=== PATIENT | female | born 1985 | race Caucasian/White ===

== ENCOUNTER 2025-06-07 17:55 | Observation (INO) | payer BC, SELFPAY ==
[2025-06-07 14:56] VITALS: BMI 32.9
[2025-06-07 14:58] VITALS: BP 132/89
--- NOTE | 2025-06-07 15:33 | ED.GENMED ---
History of Present Illness
<Omar Price MD, Resident - Last Filed: 06/07/25 17:28>
General
Chief Complaint: Abdominal Symptoms
Source: patient
Exam Limitations: none
Time Seen by Provider: 06/07/25 15:28
History of Present Illness
History of Present Illness:
This is a 39-year-old female with no known medical conditions currently not on any medication presenting in the emergency department with complaints of persistent nausea and vomiting that started around 9 in the morning today. She is she reports
that she returned from [place] after staying for 4 nights in [facility]. She denies any GI symptoms during her stay in [place] however she experienced frequent urination that started on Monday while she was in [place] and apparently her symptoms were
resolving on its own however she decided to take feoa-bkt-[id number] medications for UTI last night when she returned home. She reports that the medication was and it was just cranberry pills so she decided to use it. When she woke up today
she developed nausea and vomiting she took 1 tablet of Zofran 4 mg which was also and did not provide any benefit. Reports that she could not eat anything today because of nausea and vomiting. She did not notice any blood in the vomit and
its mostly greenish in color.
She also reports that she uses ' pot' every day and had some last night as well. She denies any fevers or chills, chest pain, trouble breathing, headache, constipation, diarrhea, any urinary symptoms at this time.
Denies any recent sick contacts.
Past History
<Omar Price MD, Resident - Last Filed: 06/07/25 17:28>
Past History
ED Past Medical History: None
ED Past Surgical History: None
Patient has exhibited threatening behavior?: No
Social History
Tobacco: Smoker (1 to 2 cigarette/day)
Alcohol: Occasional
Drug: Marijuana
Personal: Single
Living: alone
Family History
Family History: Other (Noncontributory)
Review of Systems
<Omar Price MD, Resident - Last Filed: 06/07/25 17:28>
Review of Systems
Allergies reviewed?: Yes
Constitutional: Denies fever or chills
EENT: Denies sore throat
Respiratory: Denies cough
Cardiac: Denies chest pain
ABD/GI: Reports nausea and vomiting; Denies abdominal pain, diarrhea or constipated
: Denies dysuria, frequency, flank pain or incontinence
Musculoskeletal: Denies joint pain
Neurological: Denies dizzy
Hematologic/Lymphatic: Denies bleeding
Phy Exam
<Omar Price MD, Resident - Last Filed: 06/07/25 17:28>
General Physical Exam
General Presentation: mild distress
General age: appears stated age
General Skin: warm
General Habitus: obese
General Mental: alert
General Hydration: dry mucous membranes
Cardiovascular Exam
Cardiovascular Exam: regular rate/rhythm and no murmur
Pulmonary Exam
Pulmonary Exam: lungs clear, no respiratory distress and no cough
Gastrointestinal Exam
Gastrointestinal Exam: normal bowel sounds, non tender, soft and non distended
Neurological Exam
Neurological Exam: alert and oriented x3
Course
<Omar Price MD, Resident - Last Filed: 06/07/25 17:28>
Orders/Labs/Results
Orders:
Orders
06/07/25 15:38
Complete Blood Count/With Diff Urgent
Comprehensive Metabolic Panel Urgent
HCG, Serum Qualitative Screen Urgent
Comment: ADD ON
Lipase Urgent
Comment: ADD ON
06/07/25 15:42
0.9% Sodium Chloride 1000 ml [Nss] 1,000 ml IV BOLUS
Ondansetron Injectable [Zofran] 4 mg IV NOW STA
Pantoprazole [Protonix IV] 40 mg IV NOW STA
06/07/25 15:45
Add On- LAB Urgent
Tests Added?: Lipase
06/07/25 16:04
Add On- LAB Urgent
Tests Added?: hcg qual
06/07/25 16:27
droPERidol [Inapsine] 1.25 mg IV NOW STA
06/07/25 16:32
US Abdomen Complete/Upper Urgent
Comment:
Reason For Exam: Abdominal discomfort and intractable vomiting
06/07/25 16:45
0.45% Sodium Chloride 1000 ml [0.45%NaCl] 1,000 ml Sodium Bicarbonate 75 meq IV 100 mls/hr
06/07/25 16:46
ECG [Electrocardiogram (*1)] Urgent
Reason for Study: QTc Monitoring
06/07/25 16:47
Urinalysis Reflex To Culture Urgent
Date Specimen was Collected: 06/07/25
Time Specimen was Collected: 16:44
Urine Microscopic Reflex Cult Urgent
Urine Culture Urgent
EMMA Source: U
Specimen Description:
Date Specimen was Collected: 06/07/25
Time Specimen was Collected: 16:44
06/07/25 16:55
Lactate Level [Lactic Acid] Urgent
06/07/25 16:57
Admit/Transfer Patient As Directed
Co-Sign Provider:
Level of Care: Observation services
Assign to:: Medical/Surgical
Physician / Group: Shauna
Diagnosis: Hyperemesis
PRN Pain Medication Management As Directed
May give lesser potent ordered pain med per pt: Yes
preference::
Protocol:: Medication orders for pain may be administered in a
manner that supports deferring to patient preference
when the pt is:
- Requesting an ordered lesser potent pain medication.
Least to most potent pain medications are defined
as: acetaminophen < NSAID < tramadol < opioids
(morphine, oxycodone, hydromorphone).
- Requesting a lesser dose of the same medication IF
ORDERED.
- Requesting a less intrusive route of administration
if both routes are prescribed by the provider (PO <
IV).
06/07/25 16:58
Code Status As Directed
Resuscitation Status: Full Code
06/07/25 17:02
Sodium Bicarbonate 50 meq IV NOW STA
06/07/25 18:00
Lactated Ringers [Lr] 1,000 ml IV 125 mls/hr
Abnormal Lab Results
06/07/25 06/07/25
15:38 16:47
Absolute Neuts (auto) 7.4 H 10^3/uL
(1.4-6.5)
Absolute Monos (auto) 0.8 H 10^3/uL
(0.1-0.6)
Lymphocytes % 19.1 L %
(20.5-51.1)
Carbon Dioxide 11 L* mmol/L
(22-30)
Glucose 181 H mg/dl
(70-99)
Total Bilirubin 1.5 H mg/dl
(0.2-1.3)
AST 45 H U/L
(14-36)
ALT 45 H U/L
(0-35)
Total Protein 8.5 H g/dl
(6.3-8.2)
Albumin 5.4 H g/dl
(3.5-5.0)
Urine Ketones 3+ A
(Negative)
Ur Occult Blood Reflex 1+ A
(Negative)
Urine Nitrite (Reflex) Positive A
(Negative)
Urine Bilirubin 3+ A
(Negative)
Urine Urobilinogen 3+ A
(Neg - 1+)
Urine Bacteria (Reflex) Moderate A
(Negative)
Urine Albumin (Reflex) 3+ A
(Neg - Trace)
06/07/25 15:38
06/07/25 15:38
Vital Signs
Initial and Last Documented VS:
Initial Vital Signs
Temp Pulse Resp BP Pulse Ox
98.2 F 89 16 132/89 99
06/07/25 14:58 06/07/25 14:58 06/07/25 14:58 06/07/25 14:58 06/07/25 14:58
Last Documented Vital Signs
Temp Pulse Resp BP Pulse Ox
98.2 F 73 22 138/85 100
06/07/25 16:00 06/07/25 16:00 06/07/25 16:00 06/07/25 16:00 06/07/25 16:00
<Maria G Easton MD - Last Filed: 06/07/25 16:49>
Orders/Labs/Results
Orders:
Orders
06/07/25 15:38
Complete Blood Count/With Diff Urgent
Comprehensive Metabolic Panel Urgent
HCG, Serum Qualitative Screen Urgent
Comment: ADD ON
Lipase Urgent
Comment: ADD ON
06/07/25 15:42
0.9% Sodium Chloride 1000 ml [Nss] 1,000 ml IV BOLUS
Ondansetron Injectable [Zofran] 4 mg IV NOW STA
Pantoprazole [Protonix IV] 40 mg IV NOW STA
06/07/25 15:45
Add On- LAB Urgent
Tests Added?: Lipase
06/07/25 16:04
Add On- LAB Urgent
Tests Added?: hcg qual
06/07/25 16:27
droPERidol [Inapsine] 1.25 mg IV NOW STA
06/07/25 16:32
US Abdomen Complete/Upper Urgent
Comment:
Reason For Exam: Abdominal discomfort and intractable vomiting
06/07/25 16:45
0.45% Sodium Chloride 1000 ml [0.45%NaCl] 1,000 ml Sodium Bicarbonate 75 meq IV 100 mls/hr
06/07/25 16:46
ECG [Electrocardiogram (*1)] Urgent
Reason for Study: QTc Monitoring
06/07/25 16:47
Urinalysis Reflex To Culture Urgent
Date Specimen was Collected: 06/07/25
Time Specimen was Collected: 16:44
Urine Microscopic Reflex Cult Urgent
Urine Culture Urgent
EMMA Source: U
Specimen Description:
Date Specimen was Collected: 06/07/25
Time Specimen was Collected: 16:44
06/07/25 16:55
Lactate Level [Lactic Acid] Urgent
06/07/25 16:57
Admit/Transfer Patient As Directed
Co-Sign Provider:
Level of Care: Observation services
Assign to:: Medical/Surgical
Physician / Group: Shauna
Diagnosis: Hyperemesis
PRN Pain Medication Management As Directed
May give lesser potent ordered pain med per pt: Yes
preference::
Protocol:: Medication orders for pain may be administered in a
manner that supports deferring to patient preference
when the pt is:
- Requesting an ordered lesser potent pain medication.
Least to most potent pain medications are defined
as: acetaminophen < NSAID < tramadol < opioids
(morphine, oxycodone, hydromorphone).
- Requesting a lesser dose of the same medication IF
ORDERED.
- Requesting a less intrusive route of administration
if both routes are prescribed by the provider (PO <
IV).
06/07/25 16:58
Code Status As Directed
Resuscitation Status: Full Code
06/07/25 17:02
Sodium Bicarbonate 50 meq IV NOW STA
06/07/25 18:00
Lactated Ringers [Lr] 1,000 ml IV 125 mls/hr
Abnormal Lab Results
06/07/25 06/07/25
15:38 16:47
Absolute Neuts (auto) 7.4 H 10^3/uL
(1.4-6.5)
Absolute Monos (auto) 0.8 H 10^3/uL
(0.1-0.6)
Lymphocytes % 19.1 L %
(20.5-51.1)
Carbon Dioxide 11 L* mmol/L
(22-30)
Glucose 181 H mg/dl
(70-99)
Total Bilirubin 1.5 H mg/dl
(0.2-1.3)
AST 45 H U/L
(14-36)
ALT 45 H U/L
(0-35)
Total Protein 8.5 H g/dl
(6.3-8.2)
Albumin 5.4 H g/dl
(3.5-5.0)
Urine Ketones 3+ A
(Negative)
Ur Occult Blood Reflex 1+ A
(Negative)
Urine Nitrite (Reflex) Positive A
(Negative)
Urine Bilirubin 3+ A
(Negative)
Urine Urobilinogen 3+ A
(Neg - 1+)
Urine Bacteria (Reflex) Moderate A
(Negative)
Urine Albumin (Reflex) 3+ A
(Neg - Trace)
06/07/25 15:38
06/07/25 15:38
Vital Signs
Initial and Last Documented VS:
Initial Vital Signs
Temp Pulse Resp BP Pulse Ox
98.2 F 89 16 132/89 99
06/07/25 14:58 06/07/25 14:58 06/07/25 14:58 06/07/25 14:58 06/07/25 14:58
Last Documented Vital Signs
Temp Pulse Resp BP Pulse Ox
98.2 F 73 22 138/85 100
06/07/25 16:00 06/07/25 16:00 06/07/25 16:00 06/07/25 16:00 06/07/25 16:00
<Omar Price MD, Resident - Last Filed: 06/07/25 17:28>
MDM/Problems Addressed
Differential Diagnosis Includes:
Intractable vomiting vs reaction to medication vs viral gastroenteritis vs cannabis hyperemesis syndrome vs less likely pancreatitis
MDM/Problems Addressed:
Check CBC, CMP, urine, lipase
IV Zofran 4 mg
IV normal saline 1 L
IV Protonix 40 mg 1 dose
update: 4:30
Patient continues to experience nausea
Will get 1 dose of IV droperidol
CBC with normal white count and hemoglobin.
CMP with bicarb of 11 and mild elevation of LFTs. Will get ultrasound abdominal.
Will admit the patient; patient aware.
EKG with prolonged Qtc(506); will avoid additional zofran
<Omar Price MD, Resident - Last Filed: 06/07/25 17:28>
*Pulse Oximetry
SaO2: 99
Oxygen Mode of Delivery: Room air
Patient hypoxic: no
*Critical Care Note
Total Time (30-74mins, 75-104mins- exclusive of procedures): Not Applicable
ED Attending Note
<Omar Price MD, Resident - Last Filed: 06/07/25 17:28>
-
Portions of this chart may have been created with voice recognition software.� Occasional wrong word or��sound alike� substitutions may have occurred due to the inherent limitations of voice recognition software.
<Maria G Easton MD - Last Filed: 06/07/25 16:49>
ED Attending Note
Patient seen and examined by attending physician: Yes
I performed a history and physical exam of patient and discussed management with resident, I reviewed resident's note and agree with documented findings and plan of care.: Yes
ED Attending Note:
39-year-old female with recent trip to [place] reports repeated episodes of vomiting without associated diarrhea since this morning. She does have epigastric burning discomfort as well. She denies fever, chills, coffee-ground emesis, bleeding,
chest pain, shortness of breath. She did note urinary frequency and took uexs-bdh-phkaczb medications with the suspicion that she had a UTI although that has resolved. Patient does admit to using marijuana regularly for anxiety. On exam, mucous
membranes dry, abdomen soft and nontender. Labs noted, bicarb 11. CHS a consideration as part of the differential and this was discussed with patient and recommend abstinence of THC, will add bicarb to fluids, admission, continued workup including
ultrasound.
Discharge Plan
Departure
Patient Disposition: Admit
Date of Disposition: 06/07/25
Time of Disposition: 16:39
Presentation/result/management discussed w/ accepting MD/DO: Hospitalist
Discharge Problem:
Intractable nausea and vomiting
Prescriptions:
No Action
Medical Marijuana
1 dose inhalation HS
Referrals:
NONE,* [Family Provider, Internal Medicine]
Interventions
Interventions:
*Risk Screen - Suicide Last Done: 06/07/25 14:58
*General Assessment Last Done: 06/07/25 15:34
*Neglect/Abuse Screening Last Done: 06/07/25 14:58
*ED- Fall Risk Assessment Last Done: 06/07/25 15:34
*ED COVID-19 Vaccine History Last Done: 06/07/25 15:34
UA-Oydryb-Earyvtvgwt Assessment Last Done: 06/07/25 15:34
Discharge Date and Time
Print Language: SINHALA
[2025-06-07 15:45] LABS: Hematocrit 43.7 % (37.0-47.0); Hemoglobin 15.6 g/dL (12.0-16.0); Mean Corp Hgb Conc. 35.7 g/dL (33.0-37.0); Mean Corpuscular Volume 82.5 fL (81.0-99.0); Nucleated Red Blood Cells % 0 %; Platelet Count 360 10^3/uL (130-400); Red Cell Dist. Width 11.9 % (11.5-14.5)
[2025-06-07] MEDS: NSS 1000 IV (15:51)
[2025-06-07] MEDS: ZOFRAN 4 MG IV (15:51)
[2025-06-07] MEDS: PROTONIX IV 40 MG IV (15:51)
[2025-06-07 16:00] VITALS: BP 138/85
[2025-06-07 16:16] LABS: ALT (SGPT) 45 U/L (0-35); AST (SGOT) 45 U/L (14-36); Albumin 5.4 g/dl (3.5-5.0); Alkaline Phosphatase 93 U/L (38-126); Blood Urea Nitrogen 17 mg/dl (7-17); Calcium 10.0 mg/dl (8.4-10.2); Carbon Dioxide 11 mmol/L (22-30); Chloride 107 mmol/L (98-107); Estimated Creatinine Clearance > 125 ml/min; Glucose 181 mg/dl (70-99); Potassium 4.0 mmol/L (3.5-5.1); Sodium 139 mmol/L (135-145); Total Protein 8.5 g/dl (6.3-8.2); eGFR > 60.00
[2025-06-07] MEDS: INAPSINE 1.25 MG IV (16:38)
[2025-06-07 16:40] LABS: Lipase 61 U/L (23-300)
[2025-06-07 16:45] LABS: HCG, Serum Qualitative Screen Negative
[2025-06-07 16:54] LABS: Urine Character Clear (Clear)
--- NOTE | 2025-06-07 16:57 | HPS.HSE ---
Addendum entered and electronically signed by Etelvina Flores PA-C 06/07/25 19:28:
ECG Revealed Prolonged QT greater than 500ms
-Stop Zofran and transition to Tigan for Nausea
-Recheck ECG in AM
Original Note:
Family Physician
-
Family Physician: * NONE
Chief Complaint
-
Vomiting
History of Present Illness
Patient is a 39 y/o female without significant past medical history who presents with intractable vomiting. Patient reports she recently return from a trip to [facility]. While she was in [place] she did developed some urinary frequency which
resolved. This morning she awoke with intractable nausea and vomiting. She took some leftover Zofran which did not relieve her symptoms. She reports epigastric abdominal discomfort. She denies hematemesis. She denies fevers, but is now
complaining of chills. She is complaining about feeling anxious and is notes to be very restless. She states she uses medical marijuana nightly after work as she has very stressful job.
Medical History
Past Medical History
Past Medical History: Reports None
Past Surgical History: Reports None
Social History
Tobacco: Smoker (Patient smokes one cigarette per day)
Family History
Family History: Not pertinent
Allergies / Home Medications
Allergies reflects when Allergies were last updated in [facility].
Home Medications with original date entered in [facility]
Allergy/Medication List:
Allergies
Allergy/AdvReac Type Severity Reaction Status Date / Time
Penicillins Allergy Hives Verified 06/07/25 15:51
Home Medications
Medical Marijuana 1 dose inhalation HS 06/07/25
Review of Systems
-
A 12 point ROS was completed and negative except as noted: Yes
Constitutional: Denies Fever
Respiratory: Denies Cough or Trouble Breathing
Cardiac: Denies Chest Pain or Palpitations
Abdomen/GI: Reports See HPI
Physical Exam
Vital Signs
Vital Signs
Temp Pulse Resp BP Pulse Ox
98.2 F 73 22 138/85 100
06/07/25 16:00 06/07/25 16:00 06/07/25 16:00 06/07/25 16:00 06/07/25 16:00
Physical Exam
General: Well Developed, Well Nourished and Conversant
HEENT: Anicteric and Atraumatic
Respiratory: Clear and Non Labored Respirations
Cardiac: S1/S2 and Regular Rhythm
GI: Soft and Non Tender
Rectal: Deferred by Provider
Musculoskeletal: No Clubbing, No Cyanosis and No Edema
Skin: Warm and Dry
Neuro: Awake, Alert, Oriented and Nonfocal/grossly intact
Psych: Calm
Laboratory Results
-
06/07/25 15:38
06/07/25 15:38
Laboratory Results
Total Bilirubin 1.5 mg/dl (0.2-1.3) H 06/07/25 15:38
AST 45 U/L (14-36) H 06/07/25 15:38
ALT 45 U/L (0-35) H 06/07/25 15:38
Alkaline Phosphatase 93 U/L (38-126) 06/07/25 15:38
Lipase 61 U/L (23-300) 06/07/25 15:38
Data Reviewed
-
Lab Data: Labs Reviewed by me
Impression/Plan
-
Intractable Vomiting, suspect cannabis hyperemesis syndrome
-Continue NPO with sips/chips
-Continue IVFS
-Continue Zofran for nausea - Check ECG to monitor QTc
-Await Abd US
Anion-Gap Metabolic Acidosis, suspect related to volume depletion
-Check lactic acid
-Give amp sodium bicarbonate now
-Continue IVFs
Hyperglycemia
-Check HgbA1c
DVT proph: Lovenox
Code Status: Full Code
[2025-06-07] MEDS: LR 1000 IV (17:11)
[2025-06-07] MEDS: SODIUM BICARBONATE 50 MEQ IV (17:11)
--- NOTE | 2025-06-07 17:20 | CM ---
CM reviewed chart and met with pt bedside in ED. Pt was nauseous and sleepy, did not answer many questions.
Lives alone. Independent at baseline. No DME.
No hx VN/SNF
PCP: Roly Mata, not able to give specific doctors name
Pharmacy: [facility]
Anticipate discharge home, no needs. CM will continue to follow.
[2025-06-07 17:23] LABS: Urine Red Blood Cell 0-2 /HPF (0-2)
--- NOTE | 2025-06-07 18:15 | W.PN.UPDATE ---
Update Note
Progress Note Update
This is an addendum to H&P written by Etelvina Hui on 06/07/2025. �Patient seen and examined independently with PA.
39-year-old female without medical history apart from prior UTIs presenting for persistent nausea vomiting since this morning today. �She recently returned from [place]. �Also with frequent urination. �Uses marijuana daily.
Vital signs normal. �Labs unremarkable apart from bicarb of 11, mild transaminitis, blood sugar 181.
Patient with persistent vomiting likely secondary to marijuana, possible gastroenteritis after recent travel to [place]. �Also with anion gap metabolic acidosis likely from hypovolemia.
Conservative care with IV fluids with LR, bicarb push, droperidol given, Zofran, NPO, recommend marijuana cessation. �Check lactate. �Urinalysis pending.
[2025-06-07 18:30] VITALS: BP 142/86
[2025-06-07 18:36] VITALS: BMI 32.9
[2025-06-07] MEDS: LOVENOX 40 MG SC (18:42)
[2025-06-07] MEDS: TIGAN 200 MG IM (18:45)
--- NOTE | 2025-06-07 18:45 | PTCARENOTE ---
Pt. arrived from ED via stretcher, ambulated to bed independently. Pt. with c/o nausea, PRN Tigan given as ordered. Pt. resting in bed with mom at bedside, call salgado within reach.
[2025-06-07] MEDS: MELATONIN 5 MG PO (20:08)
[2025-06-07 23:10] VITALS: BP 138/85
[2025-06-08] MEDS: TIGAN 200 MG IM ×2 (00:48→07:25)
[2025-06-08] MEDS: LR 1000 IV ×2 (02:11→11:18)
[2025-06-08 07:13] LABS: Hematocrit 38.4 % (37.0-47.0); Hemoglobin 13.7 g/dL (12.0-16.0); Mean Corp Hgb Conc. 35.7 g/dL (33.0-37.0); Mean Corpuscular Volume 83.1 fL (81.0-99.0); Platelet Count 330 10^3/uL (130-400); Red Cell Dist. Width 11.8 % (11.5-14.5)
[2025-06-08] MEDS: NSS (PRESERVATIVE FREE) 10 ML IV (07:26)
[2025-06-08] MEDS: PROTONIX IV 40 MG IV (07:26)
[2025-06-08 07:30] VITALS: BP 127/84
[2025-06-08 07:53] LABS: ALT (SGPT) 36 U/L (0-35); AST (SGOT) 27 U/L (14-36); Albumin 4.7 g/dl (3.5-5.0); Alkaline Phosphatase 67 U/L (38-126); Blood Urea Nitrogen 11 mg/dl (7-17); Calcium 8.9 mg/dl (8.4-10.2); Carbon Dioxide 16 mmol/L (22-30); Chloride 107 mmol/L (98-107); Estimated Creatinine Clearance > 125 ml/min; Glucose 149 mg/dl (70-99); Magnesium 1.8 mg/dl (1.6-2.3); Potassium 3.1 mmol/L (3.5-5.1); Sodium 137 mmol/L (135-145); Total Protein 7.4 g/dl (6.3-8.2); eGFR > 60.00
[2025-06-08] MEDS: KCL 40 MEQ PO (08:53)
[2025-06-08 11:00] LABS: Glycohemoglobin (HgbA1c) 5.7 % (4.0-5.6)
--- NOTE | 2025-06-08 11:13 | W.PN.UPDATE ---
Update Note
Progress Note Update
Patient is declining ultrasound as she is not sure if it is going to be covered. She spoke to her PCP and she is planning to see her tomorrow to get ultrasound and further workup through her. The reasoning behind the ultrasound order was explained
to the patient and understand that ultrasound was to look for any gallbladder pathology and this will be missed if ultrasound was not done. Patient states that she feels 100% better with no pain or nausea.
[2025-06-08] MEDS: MAGNESIUM OXIDE 500 MG PO (11:18)
[2025-06-08 14:15] LABS: Blood Urea Nitrogen 10 mg/dl (7-17); Calcium 9.3 mg/dl (8.4-10.2); Carbon Dioxide 19 mmol/L (22-30); Chloride 110 mmol/L (98-107); Estimated Creatinine Clearance > 125 ml/min; Glucose 134 mg/dl (70-99); Potassium 3.5 mmol/L (3.5-5.1); Sodium 139 mmol/L (135-145); eGFR > 60.00
--- NOTE | 2025-06-08 15:00 | W.PN.HOSP.TC ---
Today's Communication/Plan
-
Labs improved
Check a trop
Assessment / Plan
Assessment / Plan
39-year-old female went to [place] and came back and started getting sick on the plane. She had abdominal discomfort as well as persistent vomiting. No diarrhea. No fever. She also has medical marijuana which she smokes. Patient states that she
feels better after she takes hot shower and no nausea now.
CVS: S1-S2 normal
Chest: CTA B/L
Abdomen: Soft, NT / Bowel sounds present
Extremities: No edema,
#Intractable Vomiting, suspect cannabis hyperemesis syndrome
Advance diet to LRD
Stop IVF
Pt did not want to get USS.
Aware the need and downside of not getting.
# Hypokalemia - Replaced
# Prolonged QTC
Better after K corrected.
EKG noted T changes?
Check Trop
# AG Met acidosis- Resolving.
# Obesity per BMI
# DVT prophylaxis- Lovenox
# Full CODE
Anticipated Discharge: Within 24 hours
Subjective/Interval History
-
Date of Service: June 08, 2025
Objective Data
-
Labs:
Laboratory Results
06/08/25 06/08/25
06:27 13:41
WBC 12.5 H
Hgb 13.7
Hct 38.4
Plt Count 330
Sodium 137 139
Potassium 3.1 L 3.5
Chloride 107 110 H
Carbon Dioxide 16 L 19 L
BUN 11 10
Creatinine 0.5 L 0.5 L
Glucose 149 H 134 H
Calcium 8.9 9.3
Total Bilirubin 1.0
AST 27
ALT 36 H
Alkaline Phosphatase 67
Vital Signs:
Vital Signs
Temp Pulse Resp BP Pulse Ox
98.7 F 70 20 127/84 100
06/08/25 07:30 06/08/25 07:30 06/08/25 07:30 06/08/25 07:30 06/08/25 07:30
[2025-06-08 15:17] VITALS: BP 128/78
[2025-06-08] MEDS: KCL 20 MEQ PO (15:30)
[2025-06-08 16:23] LABS: Troponin I < 0.012 ng/ml
--- NOTE | 2025-06-08 16:33 | W.PN.UPDATE ---
Addendum entered and electronically signed by Stan Hawkins MD 06/08/25 17:00:
Dictation- [id number]
Original Note:
Update Note
Progress Note Update
Troponin noted.
EKG noted QTc is better
Patient has no chest pain or any other symptoms. Discussed about getting an echo here tomorrow she absolutely does not want to stay another night and wants to be discharged and she also is concerned about chest pain done here in the hospital would
not be covered. She wants to get the echo as well as ultrasound through her PCP. Reasoning behind about tests were discussed and explained to the patient.
Patient does not have any urinary symptoms. She has a history of kidney stones from the past. Urine cultures are pending however with no symptoms of a UTI will not start her on any antibiotics. Per discussion with the patient her PCP will have
access to her labs.
Discussed about having a low residue diet and make sure that she tolerates that before we place a discharge
Labs including bicarb are better
--- NOTE | 2025-06-08 17:32 | W.DS.TRANS ---
DC Summary - Dynamometer Repairer
-
Discharge Instructions:
Discharge Diagnosis/Procedures Intractable vomiting likely cannabis hyperemesis
syndrome
Hypokalemia ( Low potassium)
Prolonged QTc
Metabolic acidosis
Diet Low Residue
Activity As tolerated
Driving Restrictions As prior to admission
Others Tests Ultrasound of the liver as outpatient
Echocardiogram as outpatient
If you develop any urinary symptoms, fever or
abdominal pain follow-up with your PCP to
evaluate urine analysis further or to prescribe
antibiotics
Instructions:
Stand-Alone Forms:
Changes to Home Medications: No
Discharge Medications:
Home Medication Changes
Pending Results: Yes (urine culture)
--- NOTE | 2025-06-08 17:39 | W.DS.TRANS ---
DC Summary - Risk Management Analyst
-
Discharge Instructions:
Discharge Diagnosis/Procedures Intractable vomiting likely cannabis hyperemesis
syndrome
Hypokalemia ( Low potassium)
Prolonged QTc
Metabolic acidosis
Diet Low Residue
Activity As tolerated
Driving Restrictions As prior to admission
Others Tests Ultrasound of the liver as outpatient
Echocardiogram as outpatient
If you develop any urinary symptoms, fever or
abdominal pain follow-up with your PCP to
evaluate urine analysis further or to prescribe
antibiotics
Instructions:
Stand-Alone Forms:
Changes to Home Medications: Yes
Discharge Medications:
DC Medications w/original date entered in [employer]
trimethobenzamide 300 mg capsule 300 mg PO Q8H PRN nausea and vomiting #15 caps 06/08/25
Home Medication Changes
tigan new
Pending Results: Yes (urine cx)
[2025-06-08] MEDS: LOVENOX SC (17:43)
== END 2025-06-08 17:54 | disposition home or self-care (01) ==
LOC: 4 EAST ACU 17:55
PROVIDERS: Physician Assistant Medical; ADMITTING PHYSICIAN Hospitalist; ATTENDING PHYSICIAN Hospitalist; EMERGENCY PHYSICIAN Emergency Medicine
DX: R11.2 Nausea with vomiting, unspecified (principal); F12.90 Cannabis use, unspecified, uncomplicated; E87.20 Acidosis, unspecified; R73.9 Hyperglycemia, unspecified; E87.6 Hypokalemia; E66.9 Obesity, unspecified; Z68.32 Body mass index [BMI] 32.0-32.9, adult; F17.210 Nicotine dependence, cigarettes, uncomplicated; F41.9 Anxiety disorder, unspecified; Z79.899 Other long term (current) drug therapy
CPT/HCPCS: 80048; 80053; 81003; 81015; 83036; 83605; 83690; 83735; 84484; 84703; 85025; 85027; 87086; 93005; 96361; 96374; 96375; 99284; G0378; J1790; J7030

== ENCOUNTER 2025-06-09 18:03 | Observation (INO) | payer BC, SELFPAY ==
[2025-06-09 11:07] VITALS: BP 132/86
--- NOTE | 2025-06-09 12:53 | ED.GENMED ---
History of Present Illness
General
Chief Complaint: Abdominal Symptoms
Source: patient
Exam Limitations: none
Time Seen by Provider: 06/09/25 12:31
Nursing documentation reviewed up to this point in time: agreed with
History of Present Illness
History of Present Illness:
Patient is a 39-year-old female who presents to the emergency department with intractable nausea/vomiting. Patient recently discharged from hospital yesterday after 1 night stay for similar symptoms. Symptoms were suspected to be secondary to
cannabis hyperemesis syndrome. Patient states shortly after leaving the hospital she became nauseous and has had intractable vomiting/dry heaving since last night.
She denies any fever, chills, abdominal pain. No chest pain or shortness of breath. No diarrhea or urinary symptoms.
Patient was discharged with prescription for Tigan which was sent to the pharmacy. Unfortunately, pharmacy was out of stock and she was unable to belt picker medication. Patient was found to have a prolonged QTc during her hospitalization.
Patient was planning to have an abdominal ultrasound performed through her primary care provider later this week.
Patient does report almost daily marijuana use. Symptoms initially began 3 days ago after returning home from a trip to [place].
Past History
Past History
ED Past Medical History: None
ED Past Surgical History: None
Patient has exhibited threatening behavior?: No
Social History
Tobacco: Smoker (1 to 2 cigarette/day)
Alcohol: Occasional
Drug: Marijuana
Personal: Single
Living: alone
Family History
Family History: Other (Noncontributory)
Review of Systems
Review of Systems
Allergies reviewed?: Yes
All Other Systems: ROS reviewed and negative except as documented in HPI and ROS
Phy Exam
Physical Exam
Physical Exam:
Vitals: Patient's vital signs are stable. Afebrile
General: Patient is actively retching on examination.
Skin: Warm and dry, no rashes or lesions
Head: Normocephalic, atraumatic
Eyes: Sclera nonicteric. EOMs intact. No nystagmus.
Throat: Dry mucous membranes. Protecting airway
Neck: Normal ROM, no cervical spine tenderness, no meningismus
Cardiac: Regular rate and rhythm, no murmurs.
Pulm: Normal respiratory effort, no wheezes, rales, rhonchi heard on exam
Abdomen: Abdomen soft and nontender. Negative Benitez sign
Extremities: No evidence of cyanosis or edema
Neuro: AAOx3. Grossly intact.
Psychiatric: Normal affect.
Course
Orders/Labs/Results
Orders:
Orders
06/09/25 13:13
0.9% Sodium Chloride 1000 ml [Nss] 1,000 ml IV BOLUS
Pantoprazole [Protonix IV] 40 mg IV NOW STA
Trimethobenzamide [Tigan] 200 mg IM NOW STA
US Abdomen Complete/Upper Urgent
Comment:
Reason For Exam: Intractable nausea/vomiting
06/09/25 13:14
Electrocardiogram (*1) Urgent
Reason for Study: QTc Monitoring
EKG- Treatment ONCE
06/09/25 13:33
Basic Metabolic Panel Urgent
Complete Blood Count/With Diff Urgent
Lipase Urgent
06/09/25 Dinner
NPO
Allow oral meds: Yes
Allow clear liquids: Sips of Clears
NPO with Ice Chips: Yes
06/09/25 16:00
Capsaicin [Zostrix-Hp 0.075% Cream] See Dose Instructions TOPICAL QID
06/09/25 17:15
Dextrose 5%/Water 1000 ml [D5w] 1,000 ml Sodium Bicarbonate 150 meq IV 80 mls/hr
06/09/25 17:36
Admit/Transfer Patient As Directed
Co-Sign Provider:
Level of Care: Observation services
Assign to:: Telemetry
Physician / Group: Hospitalist
Diagnosis: Intractable vomiting
Reason for Telemetry: Other
Other Reason for Telemetry: QT
Date to Stop Telemetry: 06/11/25
Time to Stop Telemetry: 11:00
PRN Pain Medication Management As Directed
May give lesser potent ordered pain med per pt: Yes
preference::
Protocol:: Medication orders for pain may be administered in a
manner that supports deferring to patient preference
when the pt is:
- Requesting an ordered lesser potent pain medication.
Least to most potent pain medications are defined
as: acetaminophen < NSAID < tramadol < opioids
(morphine, oxycodone, hydromorphone).
- Requesting a lesser dose of the same medication IF
ORDERED.
- Requesting a less intrusive route of administration
if both routes are prescribed by the provider (PO <
IV).
06/09/25 17:37
Code Status As Directed
Resuscitation Status: Full Code
06/09/25 18:00
Capsaicin [Zostrix-Hp 0.075% Cream] See Dose Instructions TOPICAL QID
06/09/25 20:37
Bisacodyl [Dulcolax] 10 mg RECTAL [id number] PRN
Docusate W/Senna [Senokot-S] 1 tablet PO BIDPRN PRN
Enoxaparin Sodium [Lovenox] 40 mg SC QPM
Polyethylene Glycol Powder [Miralax] 17 grams PO DAILYPRN PRN
Trimethobenzamide [Tigan] 200 mg IM Q6HPRN PRN
06/09/25 20:37
Activity As Directed
Activity Level: As Tolerated
Vital Signs As Directed
Frequency: Per unit guidelines
DX Deep Vein Thrombosis Video Routine
06/10/25 06:00
Basic Metabolic Panel IN AM
Complete Blood Count/No Diff IN AM
Magnesium IN AM
06/10/25 08:00
Pantoprazole [Protonix] 40 mg PO DAILY
06/11/25 11:00
DC Protocol for Telemetry ONCE
Abnormal Lab Results
06/09/25
13:33
WBC 12.3 H 10^3/uL
(4.8-10.8)
Abs Immat Gran (auto) 0.1 H 10^3/uL
(0-0.05)
Absolute Neuts (auto) 9.7 H 10^3/uL
(1.4-6.5)
Absolute Monos (auto) 0.9 H 10^3/uL
(0.1-0.6)
Neutrophils % 78.7 H %
(42.2-75.2)
Lymphocytes % 13.4 L %
(20.5-51.1)
Sodium 133 L mmol/L
(135-145)
Carbon Dioxide 17 L mmol/L
(22-30)
Creatinine 0.5 L mg/dL
(0.6-1.0)
Glucose 134 H mg/dl
(70-99)
06/09/25 13:33
06/09/25 13:33
Vital Signs
Initial and Last Documented VS:
Initial Vital Signs
Temp Pulse Resp BP Pulse Ox
98.2 F 73 20 132/86 98
06/09/25 11:07 06/09/25 11:07 06/09/25 11:07 06/09/25 11:07 06/09/25 11:07
Last Documented Vital Signs
Temp Pulse Resp BP Pulse Ox
98.2 F 71 18 150/85 100
06/09/25 11:07 06/09/25 14:56 06/09/25 14:56 06/09/25 14:56 06/09/25 16:23
MDM/Problems Addressed
Differential Diagnosis Includes:
Not limited to: Cannabis hyperemesis syndrome, biliary colic, acute dehydration, prolonged QTc, etc.
MDM/Problems Addressed:
39-year-old female with intractable nausea/vomiting suspected secondary to cannabis hyperemesis syndrome. Discharged from hospital yesterday however symptoms persisted at home and she has been unable to tolerate PO intake. No fevers or abdominal
pain. Vitals and exam as above.
Will check basic labs, obtain abdominal ultrasound as recommended during prior hospitalization. Will give PPI, IVF. Given history of somewhat prolonged QTC interval � will give IM Tigan.
Updates: lab review. Mild leukocytosis which I suspect to be reactive secondary to vomiting. Chemistry reveals acidosis and mild hyponatremia likely secondary to G.I. losses. EKG reveals mildly prolong QTC.
Overall, impression is likely cyclical vomiting syndrome secondary to cannabis hyperemesis. Do not suspect acute intra-abdominal infection given patient afebrile with benign abdominal exam. While her symptoms have improved mildly in ED, she remains
symptomatic. Will admit for further management. Patient accepted to hospitalist service in stable condition.
Chronic conditions affecting care:
N/A
Acute Exacerbation and/or Progression of Chronic Illness:
N/A
*Radiology
Radiology exam reviewed: radiology read reviewed
*Pulse Oximetry
SaO2: 98
Oxygen Mode of Delivery: Room air
Patient hypoxic: no
*EKG
Interpreted by ED Provider?: Yes
EKG Intrepretation Date: 06/09/25
Interpretation: abnormal
Comparison EKG: changes noted
Heart Rate: 58
Rate: bradycardiac
Rhythm: sinus
[place]: normal axis
Interval: long QT
QRS Pattern: normal QRS
Ischemia: no ischemia
*Director Of [employer] Interpretation
Rate: Director Of Corporate Communications- N/A
*Critical Care Note
Total Time (30-74mins, 75-104mins- exclusive of procedures): Not Applicable
Data Reviewed
Review of Other/Old Records Reveals: Discharge Summary (Discharge summary from 06/08/2025-after 1 night stay for intractable vomiting likely secondary to cannabis hyperemesis syndrome, discharged with prescription for Tigan)
Patient Management
Discussion with other providers: Hospitalist
Escalation/DeEscalation of care consider admission/obs:
Admit for intractable vomiting likely secondary to cannabis hyperemesis syndrome
ED Attending Note
-
Portions of this chart may have been created with voice recognition software.� Occasional wrong word or��sound alike� substitutions may have occurred due to the inherent limitations of voice recognition software.
Discharge Plan
Departure
Patient Disposition: Admit
Date of Disposition: 06/09/25
Time of Disposition: 16:47
Presentation/result/management discussed w/ accepting MD/DO: Hospitalist
Discharge Problem:
Intractable cyclical vomiting with nausea
Interventions
Interventions:
*Risk Screen - Suicide Last Done: 06/09/25 12:42
*General Assessment Last Done: 06/09/25 12:42
*Neglect/Abuse Screening Last Done: 06/09/25 12:42
*ED- Fall Risk Assessment Last Done: 06/09/25 12:42
*ED COVID-19 Vaccine History Last Done: 06/09/25 12:42
WB-Ottawf-Pusbevwuod Assessment Last Done: 06/09/25 12:42
[2025-06-09 13:32] VITALS: BMI 33.2
[2025-06-09] MEDS: TIGAN 200 MG IM ×2 (13:36→21:50)
[2025-06-09] MEDS: PROTONIX IV 40 MG IV (13:40)
[2025-06-09] MEDS: NSS 1000 IV (13:41)
[2025-06-09 14:01] LABS: Hematocrit 37.2 % (37.0-47.0); Hemoglobin 13.5 g/dL (12.0-16.0); Mean Corp Hgb Conc. 36.3 g/dL (33.0-37.0); Mean Corpuscular Volume 81.2 fL (81.0-99.0); Nucleated Red Blood Cells % 0 %; Platelet Count 306 10^3/uL (130-400); Red Cell Dist. Width 11.9 % (11.5-14.5)
[2025-06-09 14:21] LABS: Blood Urea Nitrogen 14 mg/dl (7-17); Calcium 9.4 mg/dl (8.4-10.2); Carbon Dioxide 17 mmol/L (22-30); Chloride 106 mmol/L (98-107); Estimated Creatinine Clearance > 125 ml/min; Glucose 134 mg/dl (70-99); Lipase 64 U/L (23-300); Sodium 133 mmol/L (135-145); eGFR > 60.00
[2025-06-09 14:56] VITALS: BP 150/85
[2025-06-09] MEDS: ZOSTRIX-HP 0.075% CREAM 1 APPLIC TOPICAL ×2 (15:45→21:59)
--- NOTE | 2025-06-09 17:38 | HPS.HSE ---
Family Physician
-
Family Physician: NOT KNOW UNKNOWN - PT DOES
Chief Complaint
-
Intractable vomiting
History of Present Illness
Pleasant 39-year-old female who recently came back from [place] had a 14-hour transit had a lot of vomiting. Patient was admitted here and felt better tolerated diet and was discharged. She stated that last night she had continued vomiting which
brought her back to the hospital today. No abdominal pain or diarrhea. No fever
Medical History
Past Medical History
Past Medical History: Reports Other
Additional Past Medical History:
Kidney stones
Past Surgical History: Reports Other (Kidney stones)
Social History
Tobacco: Smoker (1 to 2 cigarettes a day)
Alcohol: Occasional (1-2 times every week)
Drug: Marijuana (Medical marijuana)
Living: With Family
Employment: Employed (Schoolteacher)
Family History
Family History: Other (Father had autoimmune disease of the kidneys details unclear)
Allergies / Home Medications
Allergies reflects when Allergies were last updated in [employer].
Home Medications with original date entered in [employer]
Allergy/Medication List:
Allergies
Allergy/AdvReac Type Severity Reaction Status Date / Time
Penicillins Allergy Hives Verified 06/09/25 11:11
Home Medications
trimethobenzamide 300 mg capsule 300 mg PO Q8H PRN nausea and vomiting #15 caps 06/08/25
Review of Systems
-
A 12 point ROS was completed and negative except as noted: Yes
Respiratory: Denies Cough
Cardiac: Denies Chest Pain
Abdomen/GI: Reports Nausea and Vomiting; Denies Abdominal Pain, Diarrhea, Bloody Stools or Black Stools
Physical Exam
Vital Signs
Vital Signs
Temp Pulse Resp BP Pulse Ox
98.2 F 71 18 150/85 100
06/09/25 11:07 06/09/25 14:56 06/09/25 14:56 06/09/25 14:56 06/09/25 16:23
Physical Exam
General: No Good Appetite
Respiratory: Clear
Cardiac: S1/S2 and Regular Rhythm
GI: Soft, Non Tender and Normal Bowel Sounds
Skin: Warm
Neuro: Awake, Alert and Nonfocal/grossly intact
Laboratory Results
-
06/09/25 13:33
06/09/25 13:33
Laboratory Results
Total Bilirubin Cancelled 06/09/25 13:33
AST Cancelled 06/09/25 13:33
ALT Cancelled 06/09/25 13:33
Alkaline Phosphatase Cancelled 06/09/25 13:33
Lipase 64 U/L (23-300) 06/09/25 13:33
Impression/Plan
-
IMPRESSION/PLAN:
Ultrasound of the abdomen-normal appearance of the gallbladder with no evidence of biliary ductal dilatation. Diffuse fatty infiltration of the liver. Pancreas not visualized with no gross abnormality in the peripancreatic region. Abdominal aorta
unable to be visualized.
EKG-sinus bradycardia QTc 484.T inversion no longer evident in the anterior leads
# Intractable nausea and vomiting
Unclear if secondary to gastroenteritis
Ultrasound without any acute changes
Abdomen soft and nontender on exam
Start and continue PPI
Tigan for symptom management
Sips of clears for now and advance once symptoms improve
Hold off on medical marijuana as this could also cause vomiting(patient reported that she did get better with hot showers)
# Metabolic acidosis likely secondary to starvation ketosis
Fluids with bicarb
# Slightly prolonged QTc-watch on telemetry
# Fatty liver per ultrasound
# Obesity per BMI criteria
# DVT prophylaxis on Lovenox
# Full code
[2025-06-09] MEDS: SODIUM BICARBONATE 1150 MEQ IV (17:57)
[2025-06-09] MEDS: LOVENOX 40 MG SC (21:50)
[2025-06-10] MEDS: MELATONIN PO (02:44)
[2025-06-10 05:38] VITALS: BP 123/79
[2025-06-10] MEDS: TIGAN 200 MG IM (05:52)
[2025-06-10 05:54] LABS: Hematocrit 37.5 % (37.0-47.0); Hemoglobin 13.4 g/dL (12.0-16.0); Mean Corp Hgb Conc. 35.7 g/dL (33.0-37.0); Mean Corpuscular Volume 82.6 fL (81.0-99.0); Platelet Count 332 10^3/uL (130-400); Red Cell Dist. Width 11.9 % (11.5-14.5)
[2025-06-10 06:23] LABS: Blood Urea Nitrogen 12 mg/dl (7-17); Calcium 8.9 mg/dl (8.4-10.2); Carbon Dioxide 27 mmol/L (22-30); Chloride 103 mmol/L (98-107); Estimated Creatinine Clearance > 125 ml/min; Glucose 115 mg/dl (70-99); Magnesium 2.2 mg/dl (1.6-2.3); Potassium 3.4 mmol/L (3.5-5.1); Sodium 136 mmol/L (135-145); eGFR > 60.00
[2025-06-10 07:45] VITALS: BP 138/85
[2025-06-10 07:51] VITALS: BMI 32.5
[2025-06-10] MEDS: PROTONIX 40 MG PO (07:59)
[2025-06-10] MEDS: ZOSTRIX-HP 0.075% CREAM 1 APPLIC TOPICAL (08:10)
[2025-06-10] MEDS: SODIUM BICARBONATE IV (08:46)
--- NOTE | 2025-06-10 12:28 | CM ---
CM reviewed chart and met with pt bedside. Pt lives alone, independent in ADLs, personal care and ambulation at baseline. No DME.
No hx VN/SNF.
PCP: Elvia Peoples
Pharmacy: [facility]
Discharge plan: Anticipate home, no needs
[2025-06-10] MEDS: ZOSTRIX-HP 0.075% CREAM TOPICAL ×3 (12:44→21:54)
[2025-06-10 12:47] VITALS: BP 127/88
--- NOTE | 2025-06-10 14:52 | PTCARENOTE ---
Confirmed with MD Hawkins that it is okay to keep IVF off while patient trials clear liquids
[2025-06-10 15:09] VITALS: BP 132/76
--- NOTE | 2025-06-10 15:56 | W.PN.HOSP.TC ---
Today's Communication/Plan
-
Full Liquids
Assessment / Plan
Assessment / Plan
Ultrasound of the abdomen-normal appearance of the gallbladder with no evidence of biliary ductal dilatation. Diffuse fatty infiltration of the liver. Pancreas not visualized with no gross abnormality in the peripancreatic region. Abdominal aorta
unable to be visualized.
EKG-sinus bradycardia QTc 484.T inversion no longer evident in the anterior leads
CVS: S1-S2 normal
Chest: CTA B/L
Abdomen: Soft, NT / Bowel sounds present
Extremities: No edema
# Intractable nausea and vomiting
Unclear if secondary to gastroenteritis
Ultrasound without any acute changes
Abdomen soft and nontender on exam
Continue PPI
Tigan for symptom management
Clears advance to Full.
Hold off on medical marijuana as this could also cause vomiting(patient reported that she did get better with hot showers)
# Metabolic acidosis likely secondary to starvation ketosis
Resolved.
# Slightly prolonged QTc-watch on telemetry
# Fatty liver per ultrasound
# Obesity per BMI criteria
# DVT prophylaxis on Lovenox
# Full code
Anticipated Discharge: Within 24 hours
Subjective/Interval History
-
Date of Service: June 10, 2025
Objective Data
-
Labs:
Laboratory Results
06/10/25
05:44
WBC 11.7 H
Hgb 13.4
Hct 37.5
Plt Count 332
Sodium 136
Potassium 3.4 L
Chloride 103
Carbon Dioxide 27
BUN 12
Creatinine 0.6
Glucose 115 H
Calcium 8.9
Vital Signs:
Vital Signs
Temp Pulse Resp BP Pulse Ox
98.9 F 52 17 132/76 98
06/10/25 15:09 06/10/25 15:09 06/10/25 15:09 06/10/25 15:09 06/10/25 15:09
I&O
06/09/25 06/10/25 06/11/25
06:59 06:59 06:59
Intake Total 480 / 480
Balance 480 / 480
[2025-06-10] MEDS: KCL 40 MEQ PO (17:10)
[2025-06-10] MEDS: LOVENOX SC (17:11)
[2025-06-10 19:50] VITALS: BP 120/73
[2025-06-10] MEDS: MELATONIN 5 MG PO (21:53)
[2025-06-10 23:27] VITALS: BP 137/86
[2025-06-11 03:24] VITALS: BP 114/62
[2025-06-11 04:27] VITALS: BMI 32.9
--- NOTE | 2025-06-11 06:21 | PTCARENOTE ---
Pt slept well overnight. HR in the 40's SB with prolonged QT while sleeping. Pt denied any complaints of N/V overnight. pt ambulatory to bathroom as needed. Vital signs stable. Will continue to monitor.
[2025-06-11 07:30] VITALS: BP 123/81
[2025-06-11 09:05] LABS: Blood Urea Nitrogen 15 mg/dl (7-17); Calcium 8.7 mg/dl (8.4-10.2); Carbon Dioxide 26 mmol/L (22-30); Chloride 103 mmol/L (98-107); Estimated Creatinine Clearance > 125 ml/min; Glucose 92 mg/dl (70-99); Potassium 3.5 mmol/L (3.5-5.1); Sodium 137 mmol/L (135-145); eGFR > 60.00
[2025-06-11] MEDS: PROTONIX 40 MG PO (09:05)
[2025-06-11] MEDS: ZOSTRIX-HP 0.075% CREAM TOPICAL ×2 (09:05→12:21)
--- NOTE | 2025-06-11 09:32 | W.PN.HOSP.TC ---
Today's Communication/Plan
-
Swallow diet
She wants to get ECHO done as OP
As long as patient tolerates will discharge
Assessment / Plan
Assessment / Plan
Ultrasound of the abdomen-normal appearance of the gallbladder with no evidence of biliary ductal dilatation. Diffuse fatty infiltration of the liver. Pancreas not visualized with no gross abnormality in the peripancreatic region. Abdominal aorta
unable to be visualized.
EKG-sinus bradycardia. Minimal LVH may be normal variant. QTc 448
CVS: S1-S2 normal
Chest: CTA B/L
Abdomen: Soft, NT / Bowel sounds present
Extremities: No edema
# Intractable nausea and vomiting
Unclear if secondary to gastroenteritis
Ultrasound without any acute changes
Abdomen soft and nontender on exam
Continue PPI
Tigan for symptom management
Swallow diet today
Hold off on medical marijuana as this could also cause vomiting(patient reported that she did get better with hot showers)
# Metabolic acidosis likely secondary to starvation ketosis
Resolved.
# Slightly prolonged QTc-EKG QTc is 448 today
# Fatty liver per ultrasound
# Obesity per BMI criteria
# DVT prophylaxis on Lovenox
# Full code
Patient stated that Tigan could not be obtained in any pharmacies. Now that her QTc has normalized we will give her Zofran for discharge. Patient stated that she has not needed it but feels that the ride home may cause nausea. Okay to get a dose
of Tigan prior to car ride. Advised to walk around after she has a solid diet to make sure she does not have any symptoms. Will also keep PPI for 1 week
Discussed with nursing
Anticipated Discharge: Today
Subjective/Interval History
-
Date of Service: June 11, 2025
Objective Data
-
Labs:
Laboratory Results
06/11/25
08:20
Sodium 137
Potassium 3.5
Chloride 103
Carbon Dioxide 26
BUN 15
Creatinine 0.7
Glucose 92
Calcium 8.7
Vital Signs:
Vital Signs
Temp Pulse Resp BP Pulse Ox
98.2 F 53 16 123/81 99
06/11/25 07:30 06/11/25 07:30 06/11/25 07:30 06/11/25 07:30 06/11/25 07:30
I&O
06/10/25 06/11/25 06/12/25
06:59 06:59 06:59
Intake Total 960 / 960
Balance 960 / 960
[2025-06-11] MEDS: KCL 20 MEQ PO (09:56)
[2025-06-11 11:39] VITALS: BP 140/83
--- NOTE | 2025-06-11 13:23 | CM ---
Reviewed the chart notes and spoke with the patient at the bedside. CM continues to be available to patient/family and is monitoring medical plan for needs at discharge.
Plan: Discharge to home when medically stable. No needs anticipated at this time.
--- NOTE | 2025-06-11 14:08 | W.PN.UPDATE ---
Update Note
Progress Note Update
Patient tolerated breakfast and lunch with no symptoms. Ambulated with no nausea. Discharged today
--- NOTE | 2025-06-11 14:09 | W.DS.TRANS ---
Addendum entered and electronically signed by Stan Hawkins MD 06/11/25 14:27:
Dictation- [id number]
Original Note:
DC Summary - [employer]
-
Discharge Instructions:
Discharge Diagnosis/Procedures Nausea and vomiting
Metabolic acidosis
Low potassium
Fatty liver per ultrasound
Diet Low Residue
Activity As tolerated
Driving Restrictions As prior to admission
Others Tests Echo as outpatient
Instructions:
Stand-Alone Forms:
Changes to Home Medications: Yes
Discharge Medications:
DC Medications w/original date entered in [employer]
ondansetron HCl 4 mg tablet 4 mg PO Q8H PRN nausea 4 days #10 tabs 06/11/25
pantoprazole 40 mg tablet,delayed release (Protonix) 40 mg PO DAILY Gastrointestinal issue #7 tabs 06/11/25
Home Medication Changes
above meds new
Pending Results: No
[2025-06-11] MEDS: TIGAN 200 MG IM (14:39)
--- NOTE | 2025-06-11 15:30 | PTCARENOTE ---
Discharge order reviewed. IV site removed. PRN Tigan administered prior to discharge. Pt denying nausea. Pt ambulated from hospital with family member.
== END 2025-06-11 15:31 | disposition home or self-care (01) ==
LOC: 1 ACUTE 18:03
PROVIDERS: Physician Assistant; ADMITTING PHYSICIAN Hospitalist; EMERGENCY PHYSICIAN Emergency Medicine
DX: R11.2 Nausea with vomiting, unspecified (principal); F12.90 Cannabis use, unspecified, uncomplicated; F17.210 Nicotine dependence, cigarettes, uncomplicated; E87.20 Acidosis, unspecified; K76.0 Fatty (change of) liver, not elsewhere classified; E66.9 Obesity, unspecified; E87.6 Hypokalemia; E87.1 Hypo-osmolality and hyponatremia; Z68.32 Body mass index [BMI] 32.0-32.9, adult; Z79.899 Other long term (current) drug therapy; Z87.442 Personal history of urinary calculi
CPT/HCPCS: 76700; 80048; 83690; 83735; 85025; 85027; 93005; 96361; 96372; 96374; 99285; 99406; G0378